=== PATIENT | female | born 2000 | race Caucasian/White ===

== ENCOUNTER 2021-01-24 21:07 | Emergency (ER) | payer MEDICAID ==
[~2021-01-24] VITALS: Ht 154.9 cm; Wt 40.9 kg
[2021-01-24 21:15] VITALS: Ht 154.9 cm; Wt 40.9 kg
[2021-01-24] MEDS ORDERED: HYDROCODON-ACE1 EAC7 PO (22:23)
[2021-01-24 22:48] VITALS: BP 109/67
== END 2021-01-24 22:48 | disposition home or self-care (01) ==
LOC: D.ER 21:07
DX: R51.9 Headache, unspecified (principal); F07.81 Postconcussional syndrome; J45.909 Unspecified asthma, uncomplicated; Z72.0 Tobacco use